=== PATIENT | male | born 1970 | race Caucasian/White ===

== ENCOUNTER 2019-11-25 14:50 | Emergency (ER) | payer BC, SELFPAY ==
[2019-11-25 15:09] VITALS: BP 135/84; PULSE 79; RESP 19; TEMP 36.6; O2SAT 96; BMI 25.2
--- NOTE | 2019-11-25 15:52 | HMH.EDUTC ---
[facility] [place] Disposition Clinical Impression: Pharyngitis Qualifiers: Pharyngitis/tonsillitis etiology: unspecified etiology Qualified Code(s): J02.9 - Acute pharyngitis, unspecified Disposition: Home, Self-Care Condition on Discharge: Good Instructions: Sore Throat, DI for Pharyngitis/Tonsillopharyngitis -- Adult Additional Instructions: Drink plenty of fluids. Take tylenol or ibuprofen for pain or fever. Take the medications as directed. Follow up with your regular doctor. GO TO THE ER FOR ANY WORSENING SYMPTOMS Prescriptions: predniSONE [Deltasone 10mg tablet] 10 mg PO BID 3 Days #6 tab Transmission Status: Received by [facility] #[id number] Azithromycin [Z-Jeramie 250mg Tab*] 250 mg PO UD DOSE PK #6 tab Transmission Status: Received by [facility] #[id number] Referrals: Topher Kim MD [Primary Care Provider] - Time of Disposition: 15:54 Medical Decision Making - Medical Records Medical records reviewed: No: I reviewed the patient's medical records. - Mik Inquiry Pt receiving controlled substance: No Vital Signs: 11/25/19 15:09 11/25/19 15:56 Temperature 97.8 F 97.8 F Temperature Source Oral Pulse Rate 79 Pulse Rate [Right Brachial] 79 Respiratory Rate 19 19 Blood Pressure 135/84 Blood Pressure [Right Arm] 135/84 Blood Pressure Mean [Right Arm] 101 Blood Pressure Source [Right Arm] Automatic Cuff Blood Pressure Position [Right Arm] Sitting 02 Sat by Pulse Oximetry 96 Oxygen Delivery Method Room Air - Lab Data Lab results reviewed: Yes: I reviewed the patient's lab results. Lab Results 11/25/19 15:06: Strep Scn Rapid Clinic Negative Orders (Tests/Meds): ORDERS Category Date Time Status Covid-19 Nasal PCR Sendout Nathen Stat Lab 11/25/19 15:46 Received Strep Screen Confirmation Stat Micro 11/25/19 15:06 Received [facility] [place] HPI - General Stated complaint: sore throat Time Seen by Provider: 11/25/19 15:15 Mode of Arrival: Ambulatory Source of Information: Patient Limitations: No Limitations Description of Symptoms (Recalled from Triage Doc. by RN): PATIENT C/O SORE THROAT SINCE MONDAY HEENT Symptoms (Recalled from RN notes): Yes Resp Symptoms (Recalled from RN notes): No Skin Symptoms (Recalled from RN notes): No MS Symptoms (Recalled from RN notes): No Functional Status (Recalled from RN notes): WNL - History of Present Illness Provider Complaint: He c/o sore throat for the past 2 days. - Related Data Home Medications Medication Instructions Recorded Confirmed methocarbamoL [Robaxin 750mg Tab] 750 mg PO BIDP PRN 11/25/19 11/25/19 Previous Rx's Medication Instructions Recorded Azithromycin [Z-Jeramie 250mg Tab*] 250 mg PO UD DOSE PK #6 tab 11/25/19 predniSONE [Deltasone 10mg tablet] 10 mg PO BID 3 Days #6 tab 11/25/19 Allergies Allergy/AdvReac Type Severity Reaction Status Date / Time No Known Allergies Allergy Unverified 03/21/17 15:12 - Worker's Comp Is this a Worker's Comp case?: No [facility] History - Hepatitis A Screen Drug use history?: No High risk sexual behaviors?: No History of sexually transmitted infection?: No Currently employed?: No Childcare worker?: No Do you have indoor plumbing?: Yes Do you have electricity?: Yes Attestation statement:: This patient has been screened for Hepatitis A risk factors. I have reviewed the patient's past medical history: Yes - Social History Alcohol Intake: never Occupational Status: other ROS Obtained: Yes All systems reviewed & no additional complaints - Constitutional Constitutional: Denies chills, Denies fever(s) - Eyes Eyes: Denies eye discharge - ENT Ears, Nose, Mouth, and Throat: Reports as per HPI - Cardiovascular Cardiovascular: Denies chest pain - Respiratory Respiratory: No chest congestion, No cough Physical Exam - General General appearance: alert, in no apparent distress - Head Head exam: atraumatic, normocephalic, normal inspection
[2019-11-25 15:56] VITALS: BP 135/84; PULSE 79; RESP 19; TEMP 36.6; O2SAT 96
[2019-11-25 16:59] LABS: UTC Strep Screen (Rapid) Negative (Negative)
[2019-11-27 14:53] LABS: Covid-19 Nasal PCR Sendout Lex NOT DETECTED
== END 2019-11-25 16:02 | disposition home or self-care (01) ==
PROVIDERS: Emergency Provider Nurse Practitioner Family; PCP Family Medicine
DX: J02.9 Acute pharyngitis, unspecified (principal)
CPT/HCPCS: 87880; 99202; U0004

== ENCOUNTER 2019-11-28 22:51 | Emergency (ER) | payer BC, SELFPAY ==
[2019-11-28 22:52] VITALS: BP 142/87; PULSE 63; RESP 16; TEMP 36.7; O2SAT 99; BMI 25.7
[2019-11-28 23:27] LABS: Basophils # 0.1 K/mm3 (0-0.2); Basophils % 0.6 % (0.1-2.0); Eosinophils # 0.2 K/mm3 (0.0-0.4); Eosinophils % 1.6 % (0.1-12.0); Hematocrit 40.6 % (42.0-52.0); Hemoglobin 14.5 g/dL (14.1-18.0); Lymphocytes # 3.8 K/mm3 (0.7-4.5); Lymphocytes % 25.7 % (10-50); Mean Corpuscular HGB Conc 35.6 g/dL (31.8-35.4); Mean Corpuscular Volume 87.1 fl (80-94); Mean Platelet Volume 7.9 fl (7.4-10.4); Monocytes % 6.7 % (1.7-9.3); Neutrophils # 9.6 K/mm3 (1.8-7.8); Neutrophils % 65.4 % (37.0-80.0); Platelet Count 253 K/mm3 (142-424); Red Blood Count 4.66 M/mm3 (4.60-6.20); White Blood Count 14.6 K/mm3 (4.8-10.8)
[2019-11-28 23:28] LABS: Chloride 106 mmol/L (98-107); Sodium 141 mmol/L (136-145)
[2019-11-28 23:29] LABS: Potassium 3.5 mmoL/L (3.5-5.1)
[2019-11-28 23:31] LABS: Alanine Aminotransferase 15 U/L (12-78); Albumin/Globulin Ratio 1.3 (1.1-1.8); Alkaline Phosphatase 67 U/L (38-126); Anion Gap 11.5 mEq/L (5-15); Aspartate Amino Transferase 20 U/L (17-59); Bilirubin,Total 0.5 mg/dl (0.2-1.3); Blood Urea Nitrogen 19 mg/dl (9-20); Carbon Dioxide 27 mmol/L (22.0-30.0); Creatinine Clearance Estimated 126 mL/min (50-200); Estimated Glomerular Filt Rate 90 ml/min (>60); GFR (African American) 109 ML/MIN (>60); Globulin 3.2 g/dL (1.3-3.2); Total Protein,Serum 7.2 g/dl (6.3-8.2)
[2019-11-28 23:32] LABS: Calcium 9.5 mg/dl (8.4-10.2); Glucose 85 mg/dl (74-100)
--- NOTE | 2019-11-28 23:57 | HMH.EDURI ---
ED Disposition Clinical Impression: Tonsillar abscess, Sore throat Disposition: Home, Self-Care Condition on Discharge: Good Instructions: DI for Lymphadenopathy Prescriptions: clindamycin HCL [Clindamycin HCl 300mg Cap] 300 mg PO Q6 10 Days #40 cap Transmission Status: Pending to [facility] #[id number] methylPREDNISolone [Medrol 4mg tab] 4 mg PO DIRECTED #21 tab Transmission Status: Pending to [facility] #[id number] Ketorolac Tromethamine [Toradol 10mg tablet] 10 mg PO Q6H 5 Days #20 tab Transmission Status: Pending to [facility] #[id number] Referrals: Topher Kim MD [Primary Care Provider] - - Critical Care Critical Care Time: No Attestation: On 11/28/19, the high probability of a clinically significant, sudden or life threatening deterioration of the following system(s) required my full and direct attention, intervention and personal management. The time I documented below is in addition to time spent performing reported procedures but includes the following listed in this critical care notation. Medical Decision Making - Medical Records Medical records reviewed: Yes: I reviewed the patient's medical records. - Mik Inquiry Pt receiving controlled substance: No Vital Signs: 11/28/19 22:52 Temperature 98.1 F Temperature Source Oral Pulse Rate [Left Radial] 63 Respiratory Rate 16 Blood Pressure [Right Arm] 142/87 H Blood Pressure Mean [Right Arm] 105 Blood Pressure Source [Right Arm] Automatic Cuff Blood Pressure Position [Right Arm] Sitting 02 Sat by Pulse Oximetry 99 Oxygen Delivery Method Room Air - Lab Data Lab results reviewed: Yes: I reviewed the patient's lab results. Lab Results 11/28/19 23:16: WBC 14.6 H, RBC 4.66, Hgb 14.5, Hct 40.6 L, MCV 87.1, MCH 31.0, MCHC 35.6 H, RDW 13.0, Plt Count 253, MPV 7.9, Neut % (Auto) 65.4, Lymph % (Auto) 25.7, [place] % (Auto) 6.7, Eos % (Auto) 1.6, Baso % (Auto) 0.6, Neut # (Auto) 9.6 H, Lymph # (Auto) 3.8, [place] # (Auto) 1.0, Eos # (Auto) 0.2, Baso # (Auto) 0.1 11/28/19 23:16: Sodium 141, Potassium 3.5, Chloride 106, Carbon Dioxide 27, Anion Gap 11.5, BUN 19, Creatinine 0.90, Estimated Creat Clear 126, Estimated GFR 90, Est GFR ( Amer) 109, Glucose 85, Calcium 9.5, Total Bilirubin 0.5, AST 20, ALT 15, Alkaline Phosphatase 67, Total Protein 7.2, Albumin 4.0, Globulin 3.2, Albumin/Globulin Ratio 1.3 Result diagrams: 11/28/19 23:16 11/28/19 23:16 Orders (Tests/Meds): ED MEDICATIONS Discontinued Medications Generic Name Dose Route Start Last Admin Trade Name Antwan PRN Reason Stop Dose Admin Ketorolac Tromethamine 30 mg 11/28/19 23:18 11/28/19 23:27 Toradol 30mg/Ml Vial IV 11/28/19 23:19 30 mg ONCE ONE Administration Methylprednisolone Sodium Succinate 125 mg 11/28/19 23:18 11/28/19 23:27 Solu-Medrol 125mg/2ml Vial IV 11/28/19 23:19 125 mg ONCE ONE Administration ORDERS Category Date Time Status Covid-19 IgG/IgM ([facility]) Stat Lab 11/28/19 23:16 Received URI/Sore Throat HPI - General Chief Complaint: Upper Respiratory Infection Stated Complaint: sore throat,glands Time Seen by Provider: 11/28/19 23:50 Mode of Arrival: Ambulatory Limitations: No Limitations Description of Symptoms (Recalled from ER Triage Doc. by RN): pt was seen a couple days ago for a sore throat. pt stated he has papito taking his medication as prescribed but has had worsening pain. pt c/o of swelling and pain on right side of throat - History of Present Illness HPI Narrative: A 49-year-old male presents the emergency department with a sore throat. Patient was seen in the [facility] on Monday and prescribed a Z-Jeramie and also prednisone. Patient states that it helped some but it still failed to improve. Patient states that on Monday is when he first noticed that when he swallowed he had severe throat pain. Since Monday he states that the only thing that is helped is really ibuprofen which is helped with
[2019-11-29 00:22] LABS: Coronavirus 19 IgG Antibody Negative (Negative); Coronavirus 19 IgM Antibody Negative (Negative)
[2019-11-29 00:35] VITALS: BP 137/76; PULSE 61; RESP 17; TEMP 36.7; O2SAT 99
== END 2019-11-29 00:37 | disposition home or self-care (01) ==
PROVIDERS: Emergency Provider Family Medicine; PCP Family Medicine
DX: J36 Peritonsillar abscess (principal); Z20.828 Contact with and (suspected) exposure to other viral communicable diseases
CPT/HCPCS: 80053; 85025; 86328; 96374; 96375; 99282

== ENCOUNTER → 2022-03-11 14:28 | Outpatient (CLI) | payer BC, SELFPAY ==
--- NOTE | 2022-03-11 14:32 | CT_ITS ---
FINAL REPORT CLINICAL HISTORY: smoker, smoked 1 ppd x 30 years FINDINGS: Low-Dose Chest CT CTDI vol (mGy): 2.90 DLP (mGy-cm): 109.94 Axial images were obtained from the lung apex to the mid abdomen by computed tomography. Low-dose protocol was utilized. FINDINGS: CHEST: There is no axillary adenopathy. There is no hilar or mediastinal adenopathy. The heart is proper size. There is no pericardial or pleural effusion. Limited images of the upper abdomen are unremarkable. Lung window images demonstrate mild areas of scarring. There are small right upper lobe ground-glass opacities measuring less than 1 cm. There is mild bibasilar atelectasis or scarring. IMPRESSION: Lung RADS category 2. Recommend 12 month follow-up low-dose chest CT. Reviewed, Interpreted and Dictated by Luis Shanks III, MD Transcribed by Lito Roy Authenticated and [facility]
== END ==
PROVIDERS: PCP Family Medicine; Visit Provider Family Medicine
DX: Z87.891 Personal history of nicotine dependence (principal); Z12.2 Encounter for screening for malignant neoplasm of respiratory organs
CPT/HCPCS: 71271

== ENCOUNTER 2022-04-16 17:05 | Emergency (ER) | payer BC, SELFPAY ==
[2022-04-16 17:10] VITALS: BP 158/80; PULSE 80; RESP 20; TEMP 36.6; O2SAT 100; BMI 24.3
--- NOTE | 2022-04-16 17:38 | EXP.UTC ---
Discharge Plan Disposition Patient Disposition: Home, Self-Care Condition: Good Prescriptions Prescriptions: New prednisone 10 mg tablets,dose pack 10 mg PO DIRECTED Qty: 21 0RF Rx Instructions: see taper instructions Referrals Follow up/Referrals: Topher Kim MD [Primary Care Provider] - See instructions Clinical Impressions Clinical Impression: Low back pain Qualifiers: Chronicity: acute Back pain laterality: midline Sciatica presence: without sciatica Qualified Code(s): M54.50 - Low back pain, unspecified Instructions Patient Instructions: DI for Chronic Pain -- Adult, DI for Low Back Pain, Managing Chronic Low Back Pain Discharge ED Provider: Nuha Hernandez [facility] General Stated complaint: back pain Mode of Arrival: Ambulatory Source of Information: Patient Limitations: No Limitations Time Seen by Provider: 04/16/22 17:22 Description of Symptoms (Recalled from Triage Doc. by RN): back pain HEENT Symptoms (Recalled from RN notes): No Resp Symptoms (Recalled from RN notes): No Skin Symptoms (Recalled from RN notes): No MS Symptoms (Recalled from RN notes): Yes Functional Status (Recalled from RN notes): n/a History of Present Illness Provider Complaint: Pt relates that he has back issues and normal goes to the spinal center for steroid injections in his back every 3 months. He states that he started having a lot of lower back pain a couple of days ago and it is affecting his mobility. 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 He states that he takes diclofenac, methocarbanol, and tizanidine daily for his back issues. Related Data Previous Rx's Medication Instructions Recorded prednisone 10 mg tablets in a dose 10 mg PO DIRECTED #21 tabs 04/16/22 pack Allergies Allergy/AdvReac Type Severity Reaction Status Date / Time No Known Allergies Allergy Verified 04/16/22 17:32 Worker's Comp Is this a Worker's Comp case?: No [facility] Disclaimer: The information contained in this section may have been updated after the patient was seen, as this information can be updated by other users. Social History Smoking Status: Never smoker alcohol intake: never current occupational status: other Travel in the last 8 weeks: None ROS Obtained: Yes All systems reviewed & no additional complaints except as documented Constitutional Constitutional: Reports system reviewed and no additional complaints, except as documented Eyes Eyes: Reports system reviewed and no additional complaints, except as documented ENT Ears, Nose, Mouth, and Throat: Reports system reviewed and no additional complaints, except as documented Cardiovascular Cardiovascular: Reports system reviewed and no additional complaints, except as documented Respiratory Respiratory: Reports system reviewed and no additional complaints, except as documented Gastrointestinal Gastrointestingal: Reports system reviewed and no additional complaints, except as documented Genitourinary Male Genitourinary: Reports system reviewed and no additional complaints, except as documented Musculoskeletal Musculoskeletal: Reports abnormal gait, Reports back pain, Reports joint stiffness and Reports limited range of motion Integumentary/Breasts Skin/Breast: Reports system reviewed and no additional complaints, except as documented Neurologic Neurologic: Reports system reviewed and no additional complaints, except as documented and Reports abnormal gait Endocrine Endocrine: Reports system reviewed and no additional complaints, except as documented Hematologic/Lymphatic Henatologic/Lymphatic: Reports system reviewed and no additional complaints, except as documented Allergic/Immunologic Allergic/Immunologic: Reports system reviewed and no additional complaints, except as documented Physical Exam General General appearance: alert and in no apparent distress Head Head exam: atraumatic and normocephalic Eye Eye exam: Prese
[2022-04-16 17:44] VITALS: BP 158/80; PULSE 80; RESP 20; TEMP 36.6; O2SAT 100
== END 2022-04-16 17:44 | disposition home or self-care (01) ==
PROVIDERS: Emergency Provider Nurse Practitioner Family; PCP Family Medicine
DX: M54.50 Low back pain, unspecified (principal)
CPT/HCPCS: 99212; G0463

== ENCOUNTER 2025-01-07 15:01 | Outpatient (CLI) | payer BC, SELFPAY ==
--- OUTSIDE RECORDS SUMMARY | 2023-11-13 13:45 | XMS_ITS ---
Author Organization [facility] Address [address] [facility] [address] [place] [id number] Care Team Providers Care Facility Service Manager Name Role Phone Topher Kim Primary Care Provider Allergies No Known Allergies REASON FOR VISIT checkup Medications Medication SIG (Take, Route, Frequency, Duration) Notes Start Date End Date Status Methocarbamol 750 MG 1 tab(s) orally onc e daily in the AM Active Multivitamin - 1 tablet Orally Once a day; Duration: 30 day(s) Active Sildenafil Citrate 20 MG 1 to 5 tab(s) o rally once daily as needed 02/21/2022 Active PriLOSEC OTC 20 MG 1 tab(s) orally once a day; Duration: 14 day(s) Active tiZANidine HCl 6 MG 1 cap(s) orally At Bed Time Active Diclofenac Sodium 75 MG 1 tab(s) orally 2 times a day; Duration: 30 day(s) Active Glucosamine 500 MG 1 cap(s) orally once a day Active Vital Signs Blood pressure systolic 140 mm Hg 11/13/19 24 Blood pressure diastolic 82 mm Hg 024 Heart Rate 81 /min 11/13/2023 Height 73 in 11/13/2023 Weight 178.8 lbs 11/13/2023 BMI 23.59 kg/m2 11/13/2023 Encounters Encounter Location Date Provider Diagnosis [place] [address] [facility] [address] [place] [id number] 11/13/2023 Topher Kim Erectile dysfunction , unspecified erectile dysfunction type N52.9 Assessments Encounter Date Diagnosis (ICD Code) Assessment Notes Treatment Notes Treatment Clinical Notes Section Notes 11/13/2023 Erectile dysfunction, unspecified erectile dysfunction type (ICD-10 - N52.9) Plan Of Treatment Medication Medication Name Sig Start Date Stop Date Notes Sildenafil Citrate 20 MG 1 to 5 tab(s) o rally once daily as needed 02/21/2022 Next Appt Details Follow Up: 4 Months fasting appt., Reason: Progress Notes * JUDITH SANTORO PDOB: [birth year] (54 yo M)Acc No.[id number]:11/13/2023 Progress Notes Patient: JUDITH BEST Provider: Nicolas Kim M.D. :1970 A ge:53 Y S ex:Male Date:11/13/2023 Address:[address] [place] [address], [place], [id number] Subjective: * Chief Complaints: * 1 . Checkup. * HPI: C ardiology: 53 year old male presents with c/o Hyperlipidemia P t here for f/u, states he is doing well and does not have any concerns. Pt is not fasting today. * ROS: D ERMATOLOGY: no R cathleen. n o H ladarius. G ASTROENTEROLOGY: no N ausea. n o V omiting. U ROLOGY: no D ifficulty urinating. n o B lood in urine. * Medical History: C hronic back pain, followed by pain management, herniated lumbar disc, surgery [address] Parkinson, Epidural injection June 2016, 30 pack year smoking history as of 2021. * Surgical History: A ppendectomy , RT Hand, 4th Digit Repair , Lumbar Discectomy 2007. * Hospitalization/Major Diagno stic Procedure: D enies Past Hospitalization. * Family History: F ather: alive 79 yrs, diagnosed with Hypertension, Heart Disease, Stroke. M other: alive 74 yrs. S iblings: alive, diagnosed with Hypertension. C hildren: alive. 1 brother(s) - healthy. 1 son(s) , 1 daughter(s) - healthy. . * Social History: C URRENT TOBACCO USE S moking Status: P atient does smoke, p acks per day: 1 .5, S bree age of: 1 8, S moking preference: c igarettes. O ccupation: [employer]. * Medications: T aking Multivitamin - Tablet 1 tablet Orally Once a day , Taking tiZANidine HCl 6 MG Capsule 1 cap(s) orally At Bed Time , Taking Diclofenac Sodium 75 MG Tablet Delayed Release 1 tab(s) orally 2 times a day , Taking Glucosamine 500 MG Capsule 1 cap(s) orally once a day , Taking PriLOSEC OTC 20 MG Tablet Delayed Release 1 tab(s) orally once a day , Taking Methocarbamol 750 MG Tablet 1 tab(s) orally once daily in the AM , Taking Sildenafil Citrate 20 MG Tablet 1 to 5 tab(s) orally once daily as needed , Discontinued predniSONE 20 MG Tablet 1 tab(s) orally once a day , Discontinued Vitamin D3 25 MCG (1000 UT) Tablet 1 tab(s) orally once a day , Discontinued Fish Oil 1000 MG Capsule 1 cap(s) orally 3 times a day , Medication List reviewed and reconciled with the patient * Allergies: N .K.D.A. Objective: * Vitals: W t:178.8, Temp:97.8, BP:140/82, HR:81, Nurse:luba, Ht: 73, BMI:23.59. * Examination: G eneral Examination: General Appearance: N AD. H eart: R SR. L ungs:?clear to auscultation. Assessment: * Assessment: 1. E rectile dysfunction, unspecified erectile dysfunction type - N52.9 (Primary) ? Plan: * Treatment: * Follow Up: 4 Months fasting appt. * Images: Billing Information: * Visit Code: 67270 Office Visit, Est Pt., Level 3. * Procedure Codes: * Electronic signature of Sarita Kim MD on 01/07/2025 at 03:04 PM EDT Sign off status: Pending * Provider: Nicolas Kim M.D. Date: 0 11/13/2023 Generated for Paulo bar/Sayra/Debbie on: 1 03:04 PM EDT History and Physical Notes * HPI (History of Present Illness) Category Sub-Category Detail Notes Category Not es Cardiology Hyperlipidemia Pt here for f/u, states he is doing well and does not have any concerns. Pt is not fasting today Examination Category Sub-Category Detail Notes Category Not es General Examination Heart: RSR Lungs: clear to auscultatio n General Appearance: NAD
--- OUTSIDE RECORDS SUMMARY | 2024-12-25 12:15 | XMS_ITS ---
Author Organization [facility] Address [address] [facility] [address] [id number] Care Team Providers Care Extension Division Director Name Role Phone Topher Kim Primary Care Provider [phone] Allergies No Known Allergies Results Component Value Reference Range Notes P-Comprehensive Metabolic Pa orestes (CMP) Reviewed date:12/27/2024 11:54:43 AM Interpretation:Normal Performing Lab: Notes/Report: Test performed by [facility] [address] [place] [address] , [address], [place] [address] Luan Obrien MD, Construction Accountant CLIA: [id number] Sodium 140 135-145 mmol/L Potassium 4.5 3.5-5.3 mmol/L Chloride 106 97-108 mmol/L CO2 24 20-32 mmol/L Glucose 85 65-99 mg/dL BUN 14 6-20 mg/dL Creatinine 1.02 0.70-1.30 mg/dL Calcium 9.7 8.6-10.4 mg/dL eGFR by Creatinine 88 >59 mL/min/1.73m2 Protein 6.7 6.0-8.3 g/dL Albumin 4.2 3.5-5.3 g/dL Alkaline Phosphatase 94 40-129 IU/L ALT (SGPT) 25 <5-55 IU/L AST (SGOT) 21 <5-46 IU/L Bilirubin, Total 0.4 <0.2-1.2 mg/dL A/G Ratio 1.7 1.1-2.5 P-Lipid Panel Reviewed date:12/27/2024 11:54:43 AM Interpretation:Non-HDL 139 Performing Lab: Notes/Report: Test performed by [facility] [place] [address] Luan Obrien MD, Construction Accountant CLIA: [id number] Cholesterol 189 <200 mg/dL Triglycerides 111 <150 mg/dL HDL Cholesterol 50 >39 mg/dL Cholesterol / HDL Ratio 3.78 0.00-4.99 Ratio Non-HDL Cholesterol 139 <130 mg/dL LDL Cholesterol (Calculation) 117 <130 mg/dL LDL Cholesterol Levels* Less than 100 mg/dL Optimal 100 to 129 mg/dL Near Optimal/ Above Optimal 130 to 159 mg/dL Borderline High 160 to 189 mg/dL High 190 mg/dL and above Very High * Categories as recommended by the 2004 ATPIII guidelines LDL/HDL Ratio 2.3 <3.3 Ratio LDL Cholesterol Patient History Test Date: 12/25/2024 LDL Results: 117 Units: mg/dL % Change: - P-PSA Reviewed date:12/27/2024 11:54:43 AM Interpretation:Normal Performing Lab: Notes/Report: Test performed by [facility] [address], [place] [address] Luan Obrien MD, Construction Accountant CLIA: [id number] PSA 1.52 <4.00 ng/mL Please note this is an ultrasensitive PSA assay with a lower limit of detection of 0.014 ng/mL. This test is performed by the [employer] ECLIA methodology. Values obtained with different assay methods or kits cannot be directly compared. P-TSH reflex to FT4 Reviewed date:12/27/2024 11:54:43 AM Interpretation:Normal Performing Lab: Notes/Report: Test performed by [facility] [address] , [address], [place] [address] Luan Obrien MD, Construction Accountant CLIA: [id number] TSH reflex to FT4 2.20 0.43-5.25 mU/L REASON FOR VISIT ckup Medications Medication SIG (Take, Route, Frequency, Duration) Notes Start Date End Date Status Sildenafil Citrate 20 MG 1 to 5 tab(s) o rally once daily as needed 02/21/2022 Active Glucosamine 500 MG 1 cap(s) orally once a day Active Methocarbamol 750 MG 1 tab(s) orally onc e daily in the AM Active PriLOSEC OTC 20 MG 1 tab(s) orally once a day; Duration: 14 day(s) Active Multivitamin - 1 tablet Orally Once a day; Duration: 30 day(s) Active Diclofenac Sodium 75 MG 1 tab(s) orally 2 times a day; Duration: 30 day(s) Active tiZANidine HCl 6 MG 1 cap(s) orally At Bed Time Active Vital Signs Blood pressure systolic 134 mm Hg 12/26/19 25 Blood pressure diastolic 76 mm Hg 025 Heart Rate 83 /min 12/25/2024 Height 73 in 12/25/2024 Weight 194.6 lbs 12/25/2024 BMI 25.67 kg/m2 12/25/2024 Encounters Encounter Location Date Provider Diagnosis [facility] [address] [place], [place] [phone] 12/25/2024 Topher [place] Pure hypercholestero lemia E78.00 ; Erectile dysfunction, unspecified erectile dysfunction type N52.9 ; Prostate cancer screening Z12.5 ; Screening for lung cancer Z12.2 ; Personal history of nicotine dependence Z87.891 and BMI 25.0-25.9,adult Z68.25 Assessments Encounter Date Diagnosis (ICD Code) Assessment Notes Treatment Notes Treatment Clinical Notes Section Notes 12/25/2024 Pure hypercholesterolemia (ICD-10 - E78.00) 12/25/2024 Erectile dysfunction , unspecified erectile dysfunction type (ICD-10 - N52.9) 12/25/2024 Prostate cancer screening (ICD-10 - Z12.5) 12/25/2024 Screening for lung cancer (ICD-10 - Z12.2) 12/25/2024 Personal history of nicotine dependence (ICD-10 - Z87.891) 12/25/2024 BMI 25.0-25.9,adult (ICD-10 - Z68.25) Plan Of Treatment Medication Medication Name Sig Start Date Stop Date Notes Sildenafil Citrate 20 MG 1 to 5 tab(s) o rally once daily as needed 02/21/2022 Pending Test Test Name Order Date CT Scan : Chest, low dose 12/25/2024 Next Appt Details Follow Up: 1 Year, Reason: Progress Notes * JUDITH SANTORO PDOB: [birth year] (54 yo M)Acc No.[id number]:12/25/2024 Progress Notes Patient: JUDITH BEST Provider: Nicolas Kim M.D. :1970 A ge:54 Y S ex:Male Date:12/25/2024 Address:[address] [place] [address], [place], [id number] Subjective: * Chief Complaints: * 1 . Ckup. * HPI: C ardiology: 54 year old male presents with c/o Hyperlipidemia P t here for checkup. Pt states he is doing well and does not have any concerns at this time. Pt is fasting today. * Medical History: C hronic back pain, followed by pain management, herniated lumbar disc, surgery [address] Parkinson, Epidural injection June 2016, 30 pack year smoking history as of 2021. * Surgical History: A ppendectomy , RT Hand, 4th Digit Repair , Lumbar Discectomy 2007. * Hospitalization/Major Diagno stic Procedure: D enies Past Hospitalization. * Family History: F ather: alive 80 yrs, diagnosed with Hypertension, Stroke, Heart Disease. M other: alive 75 yrs. S iblings: alive, diagnosed with Hypertension. Gian bond: alive. 1 brother(s) - healthy. 1 son(s) , 1 daughter(s) - healthy. . * Social History: C URRENT TOBACCO USE: Yes S moking Status: P atient does smoke, p acks per day:?1.5, S bree age of: 1 8, S moking preference: c igarettes. 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 * Medications: T aking Multivitamin - Tablet [...] tab(s) orally once daily as needed , Medication List reviewed and reconciled with the patient * Allergies: N .K.D.A. Objective: * Vitals: W t: 194.6, Temp: 98.0, BP: 134/76, HR: 83, Nurse: luba, Ht: 73, BMI:25.67. * Examination: G eneral Examination: General Appearance: N AD. H eart: R SR. L ungs:?clear to auscultation. P eripheral pulses: n ormal (2+) bilaterally. E xtremities:?no leg edema. Assessment: * Assessment: 1. P ure hypercholesterolemia - E78.00 (Primary) 2 . E rectile dysfunction, unspecified erectile dysfunction type - N52.9 3 . P rostate cancer screening - Z12.5 4 . S creening for lung cancer - Z12.2 5 . P ersonal history of nicotine dependence - Z87.891 6 . B MT 25.0-25.9,adult - Z68.25 ? Plan: * Treatment: Value Reference Range A /G Ratio 1.7 1.1-2.5 - * A lbumin 4.2 3.5-5.3 - g/dL * A lkaline Phosphatase 94 40-129 - IU/L * A LT (SGPT) 25 <5-55 - IU/L * A ST (SGOT) 21 <5-46 - IU/L * B ilirubin, Total 0.4 <0.2-1.2 - mg/dL * B UN 14 6-20 - mg/dL * C alcium 9.7 8.6-10.4 - mg/dL * C hloride 106 97-108 - mmol/L * C O2 24 20-32 - mmol/L * C reatinine 1.02 0.70-1.30 - mg/dL * G lucose 85 65-99 - mg/dL * P otassium 4.5 3.5-5.3 - mmol/L * S odium 140 135-145 - mmol/L * P rotein 6.7 6.0-8.3 - g/dL * e GFR by Creatinine 88 >59 - mL/min/1.73m2 * Arabella Ramirez 12/27/2024 11:54: 11 AM EDT > Left detailed message with results on pt's indentified voicemail ?LAB: P-Lipid Panel (Collection Date & Time - 12/25/2024 03:40 PM)?Non-HDL 139* Value Reference Range C holesterol / HDL Ratio 3.78 0.00-4.99 - Ratio * C holesterol 189 <200 - mg/dL * H DL Cholesterol 50 >39 - mg/dL * L DL Cholesterol (Calculation) 117 <130 - mg/d L * L DL/HDL Ratio 2.3 <3.3 - Ratio * N on-HDL Cholesterol 139 H <130 - mg/dL * T riglycerides 111 <150 - mg/dL * Arabella Ramirez 12/27/2024 11:54: 11 AM EDT > Left detailed message with results on pt's indentified voicemail ?LAB: P-TSH reflex to FT4 (Collection Date & Time - 12/25/2024 03:40 PM)? Normal* Value Reference Range T SH reflex to FT4 2.20 0.43-5.25 - mU/L * Arabella Ramirez 12/27/2024 11:54: 11 AM EDT > Left detailed message with results on pt's indentified voicemail 2.?Erectile dysfunction, unspecified erectile dysfunction type? Refill Sildenafil Citrate Tablet, 20 MG, 1 to 5 tab(s), orally, once daily as needed, 30, Refills 5.??3.?Prostate cancer screening?LAB: P-PSA (Collection Date & Time - 12/25/2024 03:40 PM)?Normal* Value Reference Range P SA 1.52 <4.00 - ng/mL * Arabella Ramirez 12/27/2024 11:54: 11 AM EDT > Left detailed message with results on pt's indentified voicemail 4.?Screening for lung cancer?Imaging: CT Scan : Chest, low dose* Prefers late afternoon appt. Lyla Dhaliwal 12/26/2024 08:54:16 AM EDT > auth#[id number]; valid 12/26/2024-03/25/2025; CPT code 02798; faxed to [facility] Scheduling 5.?Personal history of nicotine dependence?Imaging: CT Scan : Chest, low dose* Prefers late afternoon appt. Lyla Dhaliwal 12/26/2024 08:54:16 AM EDT > auth#[id number]; valid 12/26/2024-03/25/2025; CPT code 90287; faxed to [facility] Scheduling * Procedure Codes: 3 075F SYST BP GE 130 - 139MM HG, 3078F DIAST BP < 80 MM HG * Follow Up: 1 Year * Images: Billing Information: * Visit Code: 07555 Office Visit, Est Pt., Level 4. * Procedure Codes: 3075F SYST BP GE 130 - 139MM HG. 3078F DIAST BP < 80 MM HG. * Electronic signature of Sarita Kim MD on 01/07/2025 at 03:04 PM EDT Sign off status: Pending * Provider: Nicolas Kim M.D. Date: 0 12/25/2024 Generated for Paulo ng/Sayra/eTransmitting on: 1 03:04 PM EDT History and Physical Notes * HPI (History of Present Illness) Category Sub-Category Detail Notes Category Not es Cardiology Hyperlipidemia Pt here for chec kup. Pt states he is doing well and does not have any concerns at this time. Pt is fasting today Examination Category Sub-Category Detail Notes Category Not es General Examination Heart: RSR Lungs: clear to auscultatio n Extremities: no leg edema General Appearance: NAD Peripheral pulses: normal (2+) bilatera lly
--- OUTSIDE RECORDS SUMMARY | 2025-01-03 08:17 | XMS_ITS ---
Author Organization [facility] Address [address] [facility] [address] [id number] Care Team Providers Care Production Hardener Name Role Phone Topher Kim Primary Care Provider REASON FOR VISIT Colon Cancer Screening due 03/29/25 Encounters Encounter Location Date Provider Diagnosis [facility] [place] [place] [phone] 01/03/2025 Topher Kim Colon cancer screeni ng Z12.11 Assessments Encounter Date Diagnosis (ICD Code) Assessment Notes Treatment Notes Treatment Clinical Notes Section Notes 01/03/2025 Colon cancer screening (ICD-10 - Z12.11) Plan Of Treatment Pending Test Test Name Order Date Cologuard 01/03/2025 Progress Notes * JUDITH SANTORO PDOB: [birth year] (54 yo M)Acc No.[id number]:01/03/2025 Patient: Holland BLAZEBereJUDITH BAXTER :1970 A ge:54 Y S ex:Male Address:[address] [place] [address], [id number] Subjective: * Chief Complaints: * C olon Cancer Screening due 03/29/25 * Medical History: * Surgical History: * Hospitalization/Major Diagno stic Procedure: * Medications: Objective: * Vitals: * Physical Examination: Assessment: * Assessment: 1. C olon cancer screening - Z12.11 (Primary) Plan: * Treatment: * Procedure Codes: * true * Date: Generated for Paulo bar/Sayra/Debbie on: 03:04 PM EDT
--- NOTE | 2025-01-07 15:03 | CT_ITS ---
FINAL REPORT TECHNIQUE: Thin section axial images were obtained through the lungs using a low-dose technique per lung cancer screening protocol. Reconstruction images were obtained using the axial data. Exam was performed using dose reduction technique. CLINICAL HISTORY: HX OF TOBACCO. Currently smokes 1 ppd x30 yrs. Exposure to second hand smoke. COMPARISON: 03/11/2022 FINDINGS: CTDLvol: 2.90 DLP: 109.68 54-year-old male, current smoker, 11-daud-vbzc history. Current smoker 30 pack year history Lungs: The ground glass opacity seen on the prior exam of 03/11/2022 have resolved. No suspicious nodules. Lymph nodes: No thoracic lymphadenopathy. Mediastinum: Heart size is normal. Pleura/pericardium: No pleural or pericardial effusion. Other: No acute abnormality in the upper abdomen. IMPRESSION: No suspicious pulmonary nodule or mass. Lung RADS: 1 Recommendation: 12-month follow-up LDCT Reviewed, Interpreted and Dictated by Shanta Lopez MD Transcribed by Paloma Sims Authenticated and . [facility]
--- OUTSIDE RECORDS SUMMARY | 2025-01-07 15:05 | XMS_ITS | Clinical Summary ---
Author Organization [facility] Address [address] [place] [address] Care Team Providers Care Track Repair Supervisor Name Role Phone Topher Kim MD Primary Care Provider [phone] Allergies No known active allergies Medications methocarbamol (ROBAXIN) 750 MG tablet Take 1 tablet by mouth 3 (Three) Times a Day As Needed for Muscle Spasms. 30 tablet 06/28/2020 Active glucosamine-cho ndroitin 500-400 MG capsule capsule Take by mouth 3 (Three) Times a Day With Meals. Active B Moqwjpo-I-O-Zn (b qtlxyck-R-M-zin c) tablet Take 1 tablet by mouth Daily. Active [place]-3 Fatty Acids (fish oil) 1000 MG capsule capsule Take by mouth Daily With Breakfast. Active vitamin D3 125 MCG (5000 UT) capsule capsule Take 5,000 Units by mouth Daily. Active ascorbic acid (VITAMIN C) 500 MG tablet Take 500 mg by mouth Daily. Active tadalafil (CIALIS) 5 MG tablet Take 5 mg by mouth Daily As Needed for Erectile Dysfunction. Active ibuprofen (ADVIL,MOTRIN) 600 MG tablet Take 1 tablet by mouth Every 8 (Eight) Hours As Needed for Mild Pain . 90 tablet 1 07/24/2020 Active tiZANidine (ZANAFLEX) 4 MG tabletIndicatio ns:DDD (degenerative disc disease), lumbar,Acute bilateral low back pain with right-sided sciatica TAKE 1 AND 1/2 TABLETS BY MOUTH AT NIGHT NEEDED FOR MUSCLE SPASMS 45 tablet 09/22/2020 Active diclofenac-miSO PROStol (ARTHROTEC 75) 75-0.2 MG EC tablet Take 1 tablet by mouth 2 (Two) Times a Day. Active Active Problems Problem Noted Date Diagnosed Date Low back pain DDD (degenerative disc disease), lumbar Degenerative joint disease (DJD) of lumbar spine Spinal stenosis, lumbar jo ann on, without neurogenic claudication Immunizations Immunization Administration Dates Next Due DTaP 11/13/2016 Family History Medical History Relation Name Comments Heart attack Father Jovani Heart disease Father Jovani Hypertension Father Mohall Stroke Father Mohall Relation Name Status Comments Father Jovani Social History Tobacco Use Types Packs/Day Years Used Date Smoking Tobacco: Every Day Cigarettes Smokeless Tobacco: Former Snuff Alcohol Use Standard Drinks/Week Comments Yes 4 (1 standard drink = 0.6 oz pur e alcohol) Abuse Screen Answer Date Recorded Unsafe at Home or Work/School Not on file Feels Threatened by Someone? Not on file 02/2024 Does Anyone Keep You from Co ntacting Others or Doint Things Outside the Home? Not on file 05/14/2023 Physical Sign of Abuse Present Not on file 0 05/14/2023 Housing Stability Answer Date Recorded Current Living Arrangements Not on file 01/01 Potentially Unsafe Housing Conditions Not on joey e 01/11/2023 Family and Community Support Answer Hossein e Recorded Help with Day-to-Day Activities Not on file 01/11/2023 Lonely or Isolated Not on file 01/11/2023 Employment Answer Date Recorded Do you want help finding or keeping work or a shaheen b? Not on file 01/11/2023 Disabilities Answer Date Recorded Concentrating, Remembering, or Making Decisions Difficulty Not on file 01/11/2023 Doing Errands Independently Difficulty Not on fi le 01/11/2023 Education Answer Date Recorded Help with school or training? Not on file Preferred Language Not on file 01/11/2023 Sex and Gender Information Value Date Recorded Sex Assigned at Not on file Legal Sex Male 1:13 PM EST Gender Identity Not on file Sexual Orientation Not on file Last Filed Vital Signs Vital Sign Reading Time Taken Comments Blood Pressure 112/84 04/22/2022 4:06 PM EST Pulse 86 04/22/2022 4:06 PM EST Temperature 36.7 C (98.1 F) 04/22/2022 4:06 PM EST Respiratory Rate 16 04/22/2022 4:06 PM EST Oxygen Saturation 91% 04/22/2022 4:06 PM EST Inhaled Oxygen Concentration - - Weight 90.7 kg (200 lb) 05/26/2022 3:22 PM EST Height 188 cm (6' 2 ) 05/26/2022 3:22 PM EST Body Mass Index 25.68 05/26/2022 3:22 PM EST Plan of Treatment Health Maintenance Due Date Last Done Comments Pneumococcal Vaccine 50+ (1 of 2 - PCV) 09/26/1990 TDAP/TD VACCINES (1 - Tdap) 09/26/1990 COLOGUARD 09/26/2016 COLON CANCER SCREENING 5 YEAR SIGMOIDOSCOPY 09/26/2016 COLONOSCOPY 09/26/2016 COLORECTAL CANCER SCREENING 09/26/2016 CT COLONOGRAPHY 09/26/2016 FECAL OCCULT BLOOD TEST 09/26/2016 FIT Testing (1 year) 09/26/2016 ANNUAL PHYSICAL 11/13/2016 HEPATITIS C SCREENING 11/13/2016 PT PLAN OF CARE 03/15/2017 12/15/2016 ZOSTER VACCINE (1 of 2) 09/26/2021 INFLUENZA VACCINE 11/01/2024 Insurance PPO Member Subscriber Plan / Payer (Ef fective 2021-Present) Name:Olu Santoro Relation to Subscriber:Spouse Name:Liang Santoroher Date of :1975 (Home) Address: [address] [place] [address] Payer ID:[id number] (NAIC) Type:Not on file Address: [facility] [address] [place] [id number] Care Teams Track Repair Supervisor Relationship Specialty Start Date End Date Topher Kim MD [address] [place] [facility] [address] [place] [address] (work) PCP - General Family Medicine 04/20/16
--- OUTSIDE RECORDS SUMMARY | 2025-01-07 15:05 | XMS_ITS | Patient Health Record ---
Author Organization [facility] Address [address] [facility] [address] [phone] Care Team Providers Care Movable Bulkhead Installer Name Role Phone Topher Kim Primary Care Provider [phone] Allergies No Known Allergies Results Component Value Reference Range Notes P-Comprehensive Metabolic Pa orestes (CMP) Reviewed date:12/27/2024 11:54:43 AM Interpretation:Normal Performing Lab: Notes/Report: Test performed by [facility] , [address], [place] [address] Luan Obrien MD, Senior Behavioral Scientist CLIA: [id number] Sodium 140 135-145 mmol/L Potassium 4.5 3.5-5.3 [...] 139 Performing Lab: Notes/Report: Test performed by [facility], [address] [place], [place] [address] Luan Obrien MD, Senior Behavioral Scientist CLIA: [id number] Cholesterol 189 <200 mg/dL Triglycerides 111 <150 [...] Interpretation:Normal Performing Lab: Notes/Report: Test performed by [facility] [address] [place], [place] [address] Luan Obrien MD, Senior Behavioral Scientist CLIA: [id number] PSA 1.52 <4.00 ng/mL Please note this is an ultrasensitive PSA assay with a lower limit of detection of 0.014 ng/mL. This test is performed by the [employer] ECLIA methodology. Values obtained with different assay methods or kits cannot be directly compared. P-TSH reflex to FT4 Reviewed date:12/27/2024 11:54:43 AM Interpretation:Normal Performing Lab: Notes/Report: Test performed by [facility] [address] , [address], [place] [address] Luan Obrien MD, Senior Behavioral Scientist CLIA: [id number] TSH reflex to FT4 2.20 0.43-5.25 mU/L Reason For Referral No Information Medications Medication SIG (Take, Route, Frequency, Duration) Notes Start Date End Date Status Sildenafil Citrate 20 MG 1 to 5 tab(s) o rally once daily as needed 02/21/2022 Active Glucosamine 500 MG 1 cap(s) orally once a day Active Diclofenac Sodium 75 MG 1 tab(s) orally 2 times a day; Duration: 30 day(s) Active Methocarbamol 750 MG 1 tab(s) orally onc e daily in the AM Active PriLOSEC OTC 20 MG 1 tab(s) orally once a day; Duration: 14 day(s) Active tiZANidine HCl 6 MG 1 cap(s) orally At Bed Time Active Multivitamin - 1 tablet Orally Once a day; Duration: 30 day(s) Active Immunizations Vaccine Route Administration Date Status Comme nts COVID 19 Pfizer Unknown 07/07/2020 Administered Problems Problem Type SNOMED Code ICD Code Onset Dates Problem Status W/U Status Risk Notes Problem Chronic pain (99617663) Other chronic pain (G89.29) Active confirmed Problem Sciatica (14169956) Lumbago with sciatica, left side (M54.42) Active confirmed Problem Gastroesophageal reflux disease (076722752) Gastroesophageal reflux disease, esophagitis presence not specified (K21.9) Active confirmed Problem Erectile dysfunction (disorder) (013720927) Erectile dysfunction, unspecified erectile dysfunction type (N52.9) Active confirmed Problem Tobacco user (640135951) Cigarette nicotine dependence without complication (F17.210) Active confirmed Problem Sciatica (91164645) Acute left-s ided low back pain with left-sided sciatica (M54.42) Active confirmed Problem Prolapsed lumbar intervertebral disc (388371576) Lumbar disc herniation (M51.26) Active confirmed Problem Pure hypercholesterolemia (151435371) Pure hypercholesterolemia (E78.00) Active confirmed Problem Lumbosacral spondylosis without myelopathy (52454722) DJD (degenerative joint disease), 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) Active confirmed Vital Signs Heart Rate 83 /min 12/25/2024 Blood pressure diastolic 76 mm Hg 12/25/2024 Height 73 in 12/25/2024 Blood pressure systolic 134 mm Hg 12/25/2024 Weight 194.6 lbs 12/25/2024 BMI 25.67 kg/m2 12/25/2024 Encounters Encounter Location Date [facility] [address] [place], [place] [phone] 12/25/2024 Topher [place] Pure hypercholestero lemia E78.00 ; Erectile dysfunction, unspecified erectile dysfunction type N52.9 ; Prostate cancer screening Z12.5 ; Screening for lung cancer Z12.2 ; Personal history of nicotine dependence Z87.891 and BMI 25.0-25.9,adult Z68.25 [facility] [address] [facility] [address] [place] [phone] 01/03/2025 Topher [place] Colon cancer screeni ng Z12.11 Assessments Encounter Date Diagnosis (ICD Code) Assessment Notes Treatment Notes Treatment Clinical Notes Section Notes 12/25/2024 Erectile dysfunction , unspecified erectile dysfunction type (ICD-10 - N52.9) 12/25/2024 Pure hypercholesterolemia (ICD-10 - E78.00) 01/03/2025 Colon cancer screeni ng (ICD-10 - Z12.11) 12/25/2024 Prostate cancer screening (ICD-10 - Z12.5) 12/25/2024 Screening for lung cancer (ICD-10 - Z12.2) 12/25/2024 Personal history of nicotine dependence (ICD-10 - Z87.891) 12/25/2024 BMI 25.0-25.9,adult (ICD-10 - Z68.25) Plan Of Treatment Pending Test Test Name Order Date CT Scan : Chest, low dose 12/25/2024 Cologuard 01/03/2025 Insurance Providers Payer Name Payer Address Payer Phone Subscriber Number Group Number Insured Name Patient Relationship to Insured Coverage Start Date Coverage End Date YARIELJASMINE CHANDJOHANNA [employer]AN [employer] [id number] [place] [address] [id number] JUDITH SANTORO Self - patient is the insured Medical (General) History Medical History History ICD Code chronic back pain, followed by pain emily gement herniated lumbar disc, surgery 2007 by Ishan Parkinson Epidural injection June 2016 30 pack year smoking history as of 2021 Surgical History Surgery Date(Month/Year) Appendectomy RT Hand, 4th Digit Repair Lumbar Discectomy 2007 Hospitalization History Reason Date(Month/Year)
== END 2025-01-07 23:59 | disposition home or self-care (01) ==
LOC: RAD 15:02
PROVIDERS: PCP Family Medicine; Visit Provider Family Medicine
DX: Z12.2 Encounter for screening for malignant neoplasm of respiratory organs (principal); F17.210 Nicotine dependence, cigarettes, uncomplicated
CPT/HCPCS: 71271